=== PATIENT | male | born 1970 | race Caucasian/White ===

== ENCOUNTER 2020-05-13 20:13 | Emergency (ER) | payer OTHER ==
[~2020-05-13] VITALS: Ht 175.3 cm; Wt 104.3 kg
[2020-05-13] MEDS ORDERED: AUGMENTIN 875-1 EACH PO (21:45)
[2020-05-13 21:53] VITALS: BP 142/60
== END 2020-05-13 21:55 | disposition home or self-care (01) ==
LOC: M.ERS 20:13
DX: S51.811A Laceration without foreign body of right forearm, initial encounter (principal); W54.0XXA Bitten by dog, initial encounter; Y93.89 Activity, other specified; Y92.89 Other specified places as the place of occurrence of the external cause; Y99.8 Other external cause status